=== PATIENT | male | born 1945 | race Caucasian/White ===

== ENCOUNTER → 2018-01-08 | Outpatient (CLI) | payer MEDICARE, BC ==
--- NOTE | 2018-01-08 17:29 | Diagnostic Imaging Report ---
History:Dysphagia Comparison studies: None Technique: Axial images were obtained through the maxillofacial region. Coronal and sagittal images reconstructed from the axial data. Intravenous contrast: None Findings: Soft tissues: No abnormalities. Bones: No fractures or bone abnormalities. Orbits: Globes: Intact Extra or intraconal abnormalities: None. Paranasal sinuses: Mild nonobstructing scattered mucosal thickening. Specifically, inflammatory changes obstruct the frontonasal recesses. No air-fluid levels. Incidental findings: Focal calcifications in the carotid bulb but diffuse in the carotid siphons. 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 Moderately degenerated disc and moderate bilateral foraminal stenosis at C3-4. IMPRESSION: 1. Mild scattered mucosal thickening in the paranasal sinuses. 2. Otherwise, no maxillofacial abnormalities. Signed by: Dr. Reginald Zurita M.D. on 01/08/2018 5:25 PM
== END ==
LOC: DX 12:36
PROVIDERS: ATTEND Otolaryngology Otolaryngology/Facial Plastic Surgery
DX: R13.11 Dysphagia, oral phase (principal); K21.9 Gastro-esophageal reflux disease without esophagitis; J32.0 Chronic maxillary sinusitis
CPT/HCPCS: 70486; 74230